=== PATIENT | male | born 1955 | race Caucasian/White ===

== ENCOUNTER → 2017-09-27 | Outpatient (CLI) | payer MEDICARE, OTHER ==
--- NOTE | 2017-09-28 16:47 | MR ---
EXAMINATION TYPE: MR lumbar spine wo con DATE OF EXAM: 09/27/2017 COMPARISON: NONE HISTORY: Low back pain TECHNIQUE: Multiplanar, multisequence images of the lumbar spine were acquired without intravenous contrast. FINDINGS: The lumbar spine vertebral bodies maintain normal vertebral body height and alignment. Mult ilevel disc desiccation is seen. Conus medullaris is unremarkable terminating at T12-L1. Multilevel e ndplate sclerosis is seen otherwise the bone marrow signal is unremarkable. There is a possible left lower pole renal cyst measuring at least 2.9 cm. This is only partially visualized as is an additiona l upper pole anterior cortical possible renal cyst. L1-L2: There is a broad-based disc bulge and disc desiccation with mild facet arthropathy. No signifi cant neural foraminal narrowing or spinal canal stenosis. L2-L3: There is a broad-based disc bulge, ligamentum flavum buckling and facet arthropathy resulting in mild bilateral neural foraminal narrowing, right slightly greater than left. No significant spinal canal stenosis. L3-L4: There is a broad-based disc bulge and facet arthropathy with ligamentum flavum buckling result ing in mild bilateral neural foraminal narrowing and moderate spinal canal stenosis. L4-L5: There is a broad-based disc bulge and facet arthropathy resulting in moderate left neural fora kaitlynn narrowing and mild right neural foraminal narrowing. No spinal canal stenosis. L5-S1: There is a small right paracentral disc herniation superimposed upon a broad-based disc bulge resulting in moderate to severe right neural foraminal narrowing and mild left neural foraminal narro wing. No significant spinal canal stenosis. IMPRESSION: 1. Small right paracentral disc herniation in combination with degenerative changes at L5-S1 creating moderate to severe right neural foraminal narrowing and mild left neural foraminal narrowing. 2. Multilevel degenerative disc disease, moderate in degree, creates moderate spinal canal stenosis a t L3-L4 and mild bilateral neural foraminal narrowing as well as other multilevel neural foraminal na rrowing as described above. 3. Probable left renal cysts, however full characterization with ultrasound could be performed for co nfirmation.
== END | disposition home or self-care (01) ==
LOC: RADMRIMAIN 18:51
PROVIDERS: ATTEND Psychiatry & Neurology Pain Medicine
DX: M48.061 Spinal stenosis, lumbar region without neurogenic claudication (principal); M99.73 Connective tissue and disc stenosis of intervertebral foramina of lumbar region; M51.27 Other intervertebral disc displacement, lumbosacral region; M51.36 Other intervertebral disc degeneration, lumbar region; M47.817 Spondylosis without myelopathy or radiculopathy, lumbosacral region; Z88.5 Allergy status to narcotic agent
CPT/HCPCS: 72148